=== PATIENT | male | born 1945 | race Caucasian/White ===

== ENCOUNTER 2024-02-15 16:22 | Emergency (ER) | payer OTHER, MEDICARE ==
[~2024-02-15] VITALS: Ht 182.9 cm; Wt 90.7 kg
[2024-02-15] MEDS: diphenhydrAMINE 50 mg/ml inj IM ONE (18:04)
[2024-02-15] MEDS: clonazePAM 1mg tablet PO ONE (18:05)
[2024-02-15] MEDS: LORazepam 2 mg/ml vial IM ONE (18:05)
[2024-02-15 18:11] LABS: BASOPHILS # (AUTO) 0.1 X10'3 (0-0.2); BASOPHILS % (AUTO) 0.4 % (0-1); EOSINOPHILS % (AUTO) 0.2 % (0-6); HEMATOCRIT 47.7 % (42.0-52.0); LYMPHOCYTES # (AUTO) 3.5 X10'3 (1.1-4.8); LYMPHOCYTES % (AUTO) 24.5 % (21-51); MEAN CORPUSCULAR HEMOGLOBIN 29.7 PG (27.0-31.0); MEAN CORPUSCULAR HGB CONC 33.5 g/dL (33.0-36.5); MEAN CORPUSCULAR VOLUME 88.8 FL (78-98); MEAN PLATELET VOLUME 8.2 FL (7.4-10.4); NEUTROPHILS # (AUTO) 9.6 X10'3 (1.8-7.7); NEUTROPHILS % (AUTO) 67.9 % (42-75); PLATELET COUNT 360 X10'3 (140-440); RED BLOOD COUNT 5.37 X10'6 (4.70-6.10); WHITE BLOOD COUNT 14.1 X10'3 (4.5-11.0)
[2024-02-15 18:39] LABS: ALBUMIN 4.3 G/DL (3.4-5.0); ANION GAP 9 (8-16); BLOOD UREA NITROGEN 31 MG/DL (7-18); BUN/CREATININE RATIO 21.5 (10.0-20.0); CALCIUM 9.4 MG/DL (8.5-10.1); CHLORIDE 101 MMOL/L (99-107); CREATININE 1.44 MG/DL (0.60-1.10); ETHANOL < 10 MG/DL (<10); GLUCOSE 121 MG/DL (70-104); POTASSIUM 4.1 MMOL/L (3.5-5.1); SALICYLATE 2.2 MG/DL (4.0-20.0); SODIUM 137 MMOL/L (135-145); eCRCL 48 ML/MIN; eGFR 48 ML/MIN
[2024-02-15 18:41] LABS: ACETAMINOPHEN < 2.0 UG/ML (10-30)
[2024-02-15 21:07] LABS: BILIRUBIN,URINE NEGATIVE (Neg); CLARITY,URINE CLEAR (Clear); COLOR,URINE YELLOW (Yellow); GLUCOSE, URINE NEGATIVE (Neg); KETONES,URINE TRACE mg/dl (Neg); LEUKOCYTE ESTERASE ,URINE NEGATIVE (Neg); NITRITES, URINE NEGATIVE (Neg); OCCULT BLOOD,URINE NEGATIVE (Neg); PH,URINE 5.5 (4.8-8.0); PROTEIN,URINE TRACE mg/dl (Neg); UROBILINOGEN,URINE 0.2 E.U/dL (0.2-1.0)
[2024-02-15 21:12] LABS: BACTERIA,URINE 1+ /HPF (Neg); SQUAMOUS EPITHELIAL CELL,UR FEW /LPF (FEW); UA COLLECTION TYPE VOIDED
[2024-02-15 21:13] LABS: HYALINE CASTS 0-3 /LPF (NEGATIVE); RBC,URINE NONE SEEN /HPF (0-2); WBC,URINE 0-4 /HPF (0-4)
[2024-02-15 21:31] LABS: URINE AMPHETAMINE SCREEN NEGATIVE (Neg); URINE BARBITUATE SCREEN NEGATIVE (Neg); URINE BENZODIAZEPINES SCREEN NEGATIVE (Neg); URINE CANNABINOID SCREEN POSITIVE (Neg); URINE COCAINE SCREEN NEGATIVE (Neg); URINE METHADONE SCREEN NEGATIVE (Neg); URINE OPIATE SCREEN NEGATIVE (Neg); URINE PHENCYCLIDINE SCREEN NEGATIVE (Neg)
[2024-02-15] MEDS ORDERED: NO HOME MEDS (21:54)
[2024-02-15] MEDS ORDERED: VENL150C5 PO (22:10)
[2024-02-16] MEDS: venlafaxine XR 75mg capsule (Q24H) PO SCH (07:31)
[2024-02-16] MEDS: amLODIPine 5mg tablet PO SCH (20:00)
[2024-02-17] MEDS: LORazepam 2 mg/ml vial ONE (06:45)
[2024-02-17] MEDS: diphenhydrAMINE 50 mg/ml inj ONE (06:45)
[2024-02-17] MEDS: haloperidol lactate 5mg/ml inj ONE (06:45)
[2024-02-17] MEDS: LORazepam 2 mg/ml vial IM ONE (06:46)
[2024-02-17] MEDS: diphenhydrAMINE 50 mg/ml inj IM ONE (06:47)
[2024-02-17] MEDS: haloperidol lactate 5mg/ml inj IM ONE (06:47)
[2024-02-17 13:57] VITALS: BP 116/72; PULSE 106; RESP 16; TEMP 98.1; O2SAT 98
== END 2024-02-17 14:23 | disposition still patient (30) ==
LOC: ER 16:23
DX: F22 Delusional disorders (principal); R40.4 Transient alteration of awareness; Z20.822 Contact with and (suspected) exposure to COVID-19
CPT/HCPCS: 36415; 70450; 73502; 80048; 80305; 80320; 80329; 81001; 85025; 87502; 87503; 87811; 96372; 99285; J1200; J1630; J2060

== ENCOUNTER 2024-07-20 10:39 | Inpatient (IN) | payer MEDICARE, OTHER ==
[~2024-07-20] VITALS: Ht 182.9 cm; Wt 88.6 kg
[~2024-07-20 10:39] MED LIST: VENL150C5 PO
--- NOTE | 2024-07-20 10:51 | ELECTROCARDIOGRAPH REPORT ---
[facility] Test Date: 2024-07-20 Test Time: 10:49:54 Pat Name: ELDER ROSS Department: EMERGENCY ROOM Room: Gender: M Chip Tuner: JOSE : 1945 Requested By: SALINA KRISHNAN Order Number: [id number] Reading MD: Dr. Winston Harris Measurements Intervals [place] Rate: 127 P: 0 OK: 101 QRS: -76 QRSD: 82 T: 88 QT: 300 QTc: 437 Interpretive Statements Sinus tachycardia Inferior infarct, old Abnormal lateral Q waves Probable anteroseptal infarct, recent Electronically Signed On 07-20-2024 15:47:[address] Winston Harris Please click the below link to view image of tracing.
[2024-07-20 11:08] LABS: BASOPHILS # (AUTO) 0.1 X10'3 (0-0.2); BASOPHILS % (AUTO) 0.6 % (0-1); EOSINOPHILS # (AUTO) 0.1 X10'3 (0-0.9); EOSINOPHILS % (AUTO) 0.8 % (0-6); HEMOGLOBIN 14.6 g/dl (14.0-17.9); LYMPHOCYTES # (AUTO) 2.9 X10'3 (1.1-4.8); LYMPHOCYTES % (AUTO) 29.9 % (21-51); MEAN CORPUSCULAR HEMOGLOBIN 29.3 PG (27.0-31.0); MEAN CORPUSCULAR HGB CONC 33.2 g/dL (33.0-36.5); MEAN CORPUSCULAR VOLUME 88.2 FL (78-98); MEAN PLATELET VOLUME 8.1 FL (7.4-10.4); MONOCYTES # (AUTO) 0.5 X10'3 (0-0.9); MONOCYTES % (AUTO) 4.7 % (2-12); NEUTROPHILS # (AUTO) 6.3 X10'3 (1.8-7.7); PLATELET COUNT 332 X10'3 (140-440); RED BLOOD COUNT 4.99 X10'6 (4.70-6.10); RED CELL DISTRIBUTION WIDTH 14.5 % (11.5-14.5); WHITE BLOOD COUNT 9.8 X10'3 (4.5-11.0)
--- NOTE | 2024-07-20 11:14 | RADIOLOGY REPORT ---
EXAM: DI CHEST,SINGLE VIEW REASON FOR EXAM: CP TECHNIQUE: 1 view of the chest COMPARISON: None FINDINGS/IMPRESSION: LUNGS: No pleural effusion, consolidation, or pneumothorax MEDIASTINUM: Unremarkable BONES: No acute osseous abnormality OTHER: None
[2024-07-20 11:24] LABS: ALANINE AMINOTRANSFERASE 19 U/L (12-78); ALBUMIN 3.9 G/DL (3.4-5.0); ALBUMIN/GLOBULIN RATIO 1.1 (1.1-1.5); ALKALINE PHOSPHATASE 84 IU/L (46-116); ANION GAP 18 (8-16); ASPARTATE AMINO TRANSFERASE 18 U/L (10-37); BILIRUBIN,TOTAL 0.7 MG/DL (0.1-1.0); BLOOD UREA NITROGEN 16 MG/DL (7-18); BUN/CREATININE RATIO 10.2 (10.0-20.0); CALCIUM 9.1 MG/DL (8.5-10.1); CHLORIDE 103 MMOL/L (99-107); CREATININE 1.57 MG/DL (0.60-1.10); GLUCOSE 162 MG/DL (70-104); POTASSIUM 3.9 MMOL/L (3.5-5.1); SODIUM 139 MMOL/L (135-145); TOTAL CARBON DIOXIDE 18.5 MMOL/L (24-32); TOTAL PROTEIN 7.5 G/DL (6.4-8.2); eCRCL 43 ML/MIN; eGFR 43 ML/MIN
[2024-07-20 11:31] LABS: PRO BRAIN NATRIURETIC PEPTIDE 3861 PG/ML (0-450)
[2024-07-20] MEDS ORDERED: CLOP75TA34 PO (11:55)
[2024-07-20] MEDS ORDERED: LISI20TA28 PO (11:55)
[2024-07-20] MEDS ORDERED: SPIR25TA5 PO (11:55)
[2024-07-20] MEDS ORDERED: ASPI81TA52 PO (11:55)
[2024-07-20] MEDS ORDERED: AMLO-139 PO (11:55)
[2024-07-20] MEDS ORDERED: ATOR-429 PO (11:55)
--- NOTE | 2024-07-20 13:09 | Physician Documentation ---
History of Present Illness ~ General Chief Complaint: Chest Pain Stated Complaint: 5150 Time Seen by MD: 11:57 OK to notify your PCP?: Yes Primary Medical Doctor: ERICKA; MOTORCYCLE MAKER: AMINATA WHITTAKER Source: patient Mode of Arrival: POV Exam Limitations: no limitations History of Present Illness Initial Comments This is a 79-year-old male who was brought in by the extractor operator's department on a 5150 hold. Evidently the patient was found gravely disabled and was not wearing clothing. When I spoke with the patient he states it does not work clearly because he was multiple sclerosis and it causes irritation he was lower extremities. The patient was states he was started having some chest pain in his linen tech arrived to his house and it was have a cardiac history with stents however he states the chest pain has since resolved. He denies any point having shortness of breath. Medication Reconciliation Allergies: Coded Allergies: No Known Allergies (Unverified , 02/15/24) Scheduled Amlodipine Besylate/Benazepril 10/40 MG* (Amlodipine-Benazepril 10/40 MG*), 1 CAP PO DAILY, (Reported) Aspirin (Aspirin EC), 1 TAB PO DAILY, (Reported) Atorvastatin Calcium* (Lipitor*), 1 TABLET PO HS, (Reported) Clopidogrel Bisulfate (Clopidogrel), 1 TAB PO DAILY, (Reported) Lisinopril (Lisinopril), 10 MG PO DAILY, (Reported) Spironolactone (Spironolactone), 25 MG PO DAILY, (Reported) Venlafaxine HCl (Effexor Xr), 1 CAP PO DAILY, (Reported) Physical Exam Physical Exam Vital Signs: Temperature: 97.7, Source: Oral, Heart Rate: 139, Respiratory Rate: 18, BP: 210/125, Pulse Oximetry: 100, Weight: 88.640 Oxygen Flow Rate: 0 Pulse Oximetry Reflects: adequate oxygenation General Appearance: alert, WD/WN, no apparent distress Head: normal inspection Pupils/EOM/Fundus: PERRLA Neck: non-tender, full range of motion, supple Respiratory No accessory muscle use or retractions. Lungs are clear to auscultation all granados. Cardiovascular No rubs, gallops or murmurs. No peripheral edema, cyanosis or clubbing of the extremities. Neurologic: oriented x4, character impersonator II-XII nml as tested, memory intact, oriented to time, oriented to person, oriented to place, oriented to events Motor / Sensory: no motor deficit Psychiatric: agitation Psychiatric The patient denies psychiatric issues. He states that he was brought here against his will. Skin: normal color, warm/dry Progress Progress Note Yamini: evaluated patient after repeat EKG, Broad t wave inversions in anterior leads concerning for Wellens waves. He is currently chest pain free. Cardiology Dr. Dickson consulted. He will evaluate the patient at bedside. Results/Orders Reviewed/noted all lab results: Yes Results/Orders Orders - SALINA KRISHNAN MD Chest,Single View (07/20/24 10:48) Monitor (07/20/24 10:48) Saline Lock (07/20/24 10:48) Oxygen (07/20/24 10:48) Electrocardiogram (07/20/24 10:48) Completed Orders - SALINA KRISHNAN MD Chest,Single View (07/20/24 10:48) Cbc/Diff (07/20/24 10:48) PBNP (07/20/24 10:48) Electrocardiogram (07/20/24 10:48) CMP (07/20/24 10:48) Hs Troponin I W Calculations (07/20/24 10:48) Hs Troponin I W Calculations (07/20/24 12:48) Hs Troponin I W Calculations (07/20/24 13:48) Drug Screen, Urine (07/20/24 11:26) Hgb A1c (07/20/24 10:55) Lipid Panel (07/20/24 10:55) Medications Received in ER Medications (Trade) Dose Ordered Sig/Delphine Route PRN Reason Start Time Stop Time Status Last Admin Dose Admin (Lopressor tablet) 50 mg ONCE ONCE PO 07/20/24 13:25 07/20/24 13:26 DC 07/20/24 13:40 50 MG (Ecotrin 325MG tablet) 1 tab ONCE ONCE PO 07/20/24 13:50 07/20/24 13:51 DC 07/20/24 14:47 1 TAB (heparin 10,000 unit/ml 1ml inj) 4,000 units ONCE ONCE IV 07/20/24 15:45 07/20/24 15:46 DC 07/20/24 16:27 4,000 UNITS Heparin Sodium/ Dextrose 250 ml @ 10 mls/hr Q25H PRN IV TO MAINTAIN PTT WITHIN RANGE 07/20/24 15:45 07/20/24 16:26 10 MLS/HR Vital Signs 07/20/24 07/20/24 07/20/24 07/20/24 10:49 11:02 13:20 13:40 Temp 97.7 97.7 Pulse 139 105 102 Resp 20 18 15 B/P (MAP) 210/125 176/103 (127) Pulse Ox 100 100 O2 Flow Rate 0 0 Laboratory Tests Test 07/20/24 10:55 07/20/24 12:42 07/20/24 13:24 07/20/24 13:47 White Blood Count 9.8 Red Blood Count 4.99 Hemoglobin 14.6 Hematocrit 44.0 Mean Corpuscular Volume 88.2 Mean Corpuscular Hemoglobin 29.3 Mean Corpuscular Hemoglobin Concent 33.2 Red Cell Distribution Width 14.5 Platelet Count 332 Mean Platelet Volume 8.1 Neutrophils (%) (Auto) 64.0 Lymphocytes (%) (Auto) 29.9 Monocytes (%) (Auto) 4.7 Eosinophils (%) (Auto) 0.8 Basophils (%) (Auto) 0.6 Neutrophils # (Auto) 6.3 Lymphocytes # (Auto) 2.9 Monocytes # (Auto) 0.5 Eosinophils # (Auto) 0.1 Basophils # (Auto) 0.1 CBC Comment Sodium Level 139 Potassium Level 3.9 Chloride Level 103 Carbon Dioxide Level 18.5 L Anion Gap 18 H Blood Urea Nitrogen 16 Creatinine 1.57 H Estimated GFR/1.73 m2 43 BUN/Creatinine Ratio 10.2 Glucose Level 162 H Hemoglobin A1c 5.1 Calcium Level 9.1 Total Bilirubin 0.7 Aspartate Amino Transf (AST/SGOT) 18 Alanine Aminotransferase (ALT/SGPT) 19 Alkaline Phosphatase 84 Troponin I High Sensitivity 73 79 *H 85 *H Pro-B-Type Natriuretic Peptide 3861 H Total Protein 7.5 Albumin 3.9 Globulin 3.6 Albumin/Globulin Ratio 1.1 Triglycerides Level 173 H Cholesterol Level 228 H LDL Cholesterol 155 H HDL Cholesterol 41 Cholesterol/HDL Ratio 5.6 H Chemistry Comments Troponin I High Sens Percent Delta 8 7 Troponin I Hi Sens Absolute Change 6 6 Urine Specimen Description Cln catch midstream Urine Color Yellow Urine Clarity Clear Urine pH 6.0 Urine Specific [place] 1.025 Urine Protein Trace Urine Glucose (UA) Negative Urine Ketones Negative Urine Occult Blood Negative Urine Nitrite Negative Urine Bilirubin Negative Urine Urobilinogen 0.2 Urine Leukocyte Esterase Negative Urine RBC 0-2 Urine WBC 0-4 Urine Squamous Epithelial Cells None seen Urine Bacteria None seen Urine Fine Granular Casts 0-3 Urine Mucus None seen Volume Urine Centrifuged 10 ml Urine Comment Urine Opiates Screen Negative Urine Methadone Screen Negative Urine Fentanyl Screen Negative Urine Barbiturates Screen Negative Urine Phencyclidine Screen Negative Urine Amphetamines Screen Negative Urine Benzodiazepines Screen Negative Urine Cocaine Screen Negative Urine Cannabinoids Screen Positive Drug Screen Comment EKG/XRAY/CT/US/VASC/MRI EKG : Intepreting Monitor?: No Additional Comment Twelve lead EKG as interpreted by me: Sinus rhythm rate of 127. Inferior infarct, old. Abnormal lateral Q-waves. Probable anterior septal infarct recent. Chest X-Ray : Interpreted By: self Views: 1 VIEW Additional Comments One view chest x-rays interpreted by me: No acute disease process. Cardiac silhouette and lung granados are appropriate. No obvious bony abnormality. Soft tissues unremarkable. Heart Score: Heart Score Response (Comments) Value History Slightly Suspicious [address]-Deviation 2 Age >65 2 Risk Factors >3 or Hx ASHD 2 Troponin Normal limit 0 Total 6 Medical Decision Making Findings The patient had a brief episode of chest pain with the extractor operator's arrived to his house however that has since resolved. The patient was tachycardic and slightly hypertensive so I gave him metoprolol 50 mg p.o.. The 2nd troponin came back elevated from his 1st at 79 from 72 so I gave the patient 325 mg p.o. of aspirin and one nitro sublingual which did resolve his mild discomfort though when I re- evaluated him in his states this pain was 2/10. The 3rd troponin came back elevated 85 so I ordered a heparin drip and will admit the patient to Medicine. Differential Diagnosis Gravely disabled. 5150 hold. Chest pain. Departure Disposition: ADMITTED INPATIENT Admitted to Inpatient Unit: yes, to hospitalist Admission Level of Care: Med/Surg with Tele Impression: Primary Impression: NSTEMI (non-ST elevated myocardial infarction) Condition: Guarded Referrals: NO PRIMARY CARE PROVIDER (PCP) Critical Care Note Total Time (mins): 45 Critical Care Note With the patient was found to have a NSTEMI which required heparin drip, cardiology consult and admission to the possibility of rapid deterioration of the patient. Signature Scribe Signature: No scribe Attestation: The note accurately reflects work and decisions made by me.Jose STEIN 07/20/24 13:41 JOSE SALEH July 20, 2024 13:09 SALINA KRISHNAN MD July 20, 2024 17:47
[2024-07-20] MEDS: metoprolol tartrate 50mg tablet PO ONE (13:40)
[2024-07-20] MEDS ORDERED: nitroGLYCERIN 0.4mg SUBLingual tab SL PRN (13:50)
[2024-07-20 14:22] LABS: URINE AMPHETAMINE SCREEN NEGATIVE (Neg); URINE BARBITUATE SCREEN NEGATIVE (Neg); URINE BENZODIAZEPINES SCREEN NEGATIVE (Neg); URINE CANNABINOID SCREEN POSITIVE (Neg); URINE COCAINE SCREEN NEGATIVE (Neg); URINE METHADONE SCREEN NEGATIVE (Neg); URINE OPIATE SCREEN NEGATIVE (Neg); URINE PHENCYCLIDINE SCREEN NEGATIVE (Neg)
[2024-07-20] MEDS: aspirin 325mg tablet, delayed-release (Ecotrin) PO ONE (14:47)
[2024-07-20] MEDS ORDERED: heparin 10,000 units/1 ML INJ IV PRN (15:45)
[2024-07-20] MEDS ORDERED: magnesium Cl slow-release 64mg tablet PO PRN (16:15)
[2024-07-20] MEDS ORDERED: magnesium sulf-water 2g/50mL 50 ML IV PRN (16:15)
[2024-07-20] MEDS ORDERED: potassium Cl 40MEQ/1/2NS 520ml 520 ML IV PRN (16:15)
[2024-07-20] MEDS ORDERED: mag hydrox/Alum hydrox/simeth 30ml oral suspension PO PRN (16:15)
[2024-07-20] MEDS ORDERED: magnesium hydroxide 30ml (MOM) UD suspension PO PRN (16:15)
[2024-07-20] MEDS ORDERED: acetaminophen 325mg tablet PO PRN (16:15)
[2024-07-20] MEDS ORDERED: potassium Cl 20 mEq SR tablet PO PRN ×2 (16:15)
[2024-07-20] MEDS ORDERED: magnesium sulf-water 4G/100mL 100 ML IV PRN (16:15)
[2024-07-20] MEDS: atorvastatin 20mg tablet PO SCH (16:20)
[2024-07-20] MEDS ORDERED: PERFLUTREN PROTEIN-A MICROSPHR (Optison) 0.22 MG/ML 3ML VIAL IV ONE (16:20)
[2024-07-20] MEDS: heparin 25,000 UNIT/250ml bag 250 ML IV PRN (16:26)
[2024-07-20] MEDS: heparin 10,000 units/1 ML INJ IV ONE (16:27)
[2024-07-20] MEDS: HEPARIN DRIP-CARDIAC**PHARMACIST-TO-DOSE IV ONE (16:28)
[2024-07-20] MEDS: MESSAGE TO NURSING IV ONE (16:28)
[2024-07-20 16:37] LABS: BILIRUBIN,URINE NEGATIVE (Neg); CLARITY,URINE CLEAR (Clear); COLOR,URINE YELLOW (Yellow); GLUCOSE, URINE NEGATIVE (Neg); KETONES,URINE NEGATIVE (Neg); LEUKOCYTE ESTERASE ,URINE NEGATIVE (Neg); NITRITES, URINE NEGATIVE (Neg); OCCULT BLOOD,URINE NEGATIVE (Neg); PROTEIN,URINE TRACE mg/dl (Neg); UROBILINOGEN,URINE 0.2 E.U/dL (0.2-1.0)
[2024-07-20 16:38] LABS: UA COLLECTION TYPE CLN CATCH MIDSTREAM
[2024-07-20] MEDS ORDERED: hydrALAZINE 20mg/ml inj. IV PRN (16:40)
[2024-07-20 16:43] LABS: WBC,URINE 0-4 /HPF (0-4)
[2024-07-20 16:44] LABS: BACTERIA,URINE NONE SEEN /HPF (Neg); FINE GRANULAR CAST 0-3 /LPF (NEGATIVE); MUCUS STRANDS NONE SEEN /LPF (Neg); RBC,URINE 0-2 /HPF (0-2); SQUAMOUS EPITHELIAL CELL,UR NONE SEEN /LPF (FEW)
[2024-07-20 16:47] LABS: HEMOGLOBIN A1C 5.1 % (4.5-6.2)
[2024-07-20 17:00] LABS: CHOL/HDL RATIO 5.6 (0.00-4.99); CHOLESTEROL 228 MG/DL (0-200); HDL CHOLESTEROL 41 MG/DL (35-60); LDL CHOLESTEROL 155 MG/DL (50-100); TRIGLYCERIDES 173 MG/DL (20-135)
--- NOTE | 2024-07-20 17:34 | ELECTROCARDIOGRAPH REPORT ---
[facility] Test Date: 2024-07-20 Test Time: 17:33:00 Pat Name: ELDER ROSS Department: [facility] Patient ID: [facility]-[id number] Room: [place] [address] Gender: M Lna: : 1945 Requested By: SALINA KRISHNAN Order Number: [id number] Reading MD: Dr. Winston Harris Measurements Intervals [place] Rate: 77 P: -8 CA: 156 QRS: -73 QRSD: 94 T: 101 QT: 404 QTc: 458 Interpretive Statements Sinus rhythm Left anterior fascicular block Anterolateral infarct, age indeterminate Abnormal T, consider ischemia, lateral leads ST elevation, consider inferior injury Electronically Signed On 07-21-2024 17:20:[address] Winston Harris Please click the below link to view image of tracing.
[2024-07-20 18:10] VITALS: BP 169/97; PULSE 78; RESP 11; TEMP 98; O2SAT 98
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
[2024-07-20 18:19] LABS: INR 1.2 INR; PROTHROMBIN TIME 12.1 SECONDS (9.0-12.0)
[2024-07-20] MEDS: lisinopril 10 MG tablet PO ONE (18:25)
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
[2024-07-20 18:34] LABS: APTT 122 SECONDS (22-32)
[2024-07-20] MEDS: furosemide 40mg/4ml inj IV ONE (19:37)
[2024-07-20] MEDS: clopidogrel 75mg tablet PO SCH (19:37)
[2024-07-20] MEDS: K and/or MAG REPLACEMENT MC SCH (19:38)
[2024-07-20] MEDS: venlafaxine XR 75mg capsule (Q24H) PO SCH (19:38)
[2024-07-20] MEDS: docusate sod 100mg capsule PO SCH (19:38)
[2024-07-20] MEDS: carVEDilol 3.125mg tablet PO SCH (19:39)
[2024-07-20 20:00] VITALS: RESP 12; O2SAT 100
[2024-07-20 22:00] VITALS: BP 138/86; PULSE 79; RESP 15; TEMP 98.2; O2SAT 99
[2024-07-21] VITALS (13 sets, daily range): BP systolic 62–174; BP diastolic 45–103; PULSE 78–99; RESP 13–22; TEMP 97.6–97.9; O2SAT 98–100
[2024-07-21 05:38] LABS: BASOPHILS % (AUTO) 0.6 % (0-1); EOSINOPHILS # (AUTO) 0.1 X10'3 (0-0.9); HEMATOCRIT 43.9 % (42.0-52.0); HEMOGLOBIN 14.8 g/dl (14.0-17.9); LYMPHOCYTES # (AUTO) 2.5 X10'3 (1.1-4.8); LYMPHOCYTES % (AUTO) 33.5 % (21-51); MEAN CORPUSCULAR HEMOGLOBIN 29.4 PG (27.0-31.0); MEAN CORPUSCULAR HGB CONC 33.8 g/dL (33.0-36.5); MEAN PLATELET VOLUME 8.2 FL (7.4-10.4); MONOCYTES # (AUTO) 0.6 X10'3 (0-0.9); MONOCYTES % (AUTO) 8.4 % (2-12); NEUTROPHILS # (AUTO) 4.2 X10'3 (1.8-7.7); NEUTROPHILS % (AUTO) 56.5 % (42-75); PLATELET COUNT 270 X10'3 (140-440); RED BLOOD COUNT 5.04 X10'6 (4.70-6.10); RED CELL DISTRIBUTION WIDTH 13.8 % (11.5-14.5); WHITE BLOOD COUNT 7.4 X10'3 (4.5-11.0)
[2024-07-21 05:48] LABS: MAGNESIUM 2.2 MG/DL (1.5-2.4); POTASSIUM 4.2 MMOL/L (3.5-5.1)
[2024-07-21] MEDS ORDERED: aminophylline 500mg/20ml vial IV PRN (06:20)
[2024-07-21] MEDS ORDERED: nitroGLYCERIN 0.4mg SUBLingual tab SL PRN (06:20)
[2024-07-21] MEDS ORDERED: metoprolol tartrate 1mg/ml inj IV PRN (06:20)
[2024-07-21] MEDS: fenofibrate 145mg tablet PO SCH (07:33)
[2024-07-21] MEDS: lisinopril 10 MG tablet PO SCH (07:33)
[2024-07-21] MEDS: spironolactone 25 MG tablet PO SCH (07:33)
[2024-07-21] MEDS: furosemide 40mg/4ml inj IV SCH (07:33)
[2024-07-21 07:34] LABS: ALANINE AMINOTRANSFERASE 12 U/L (12-78); ALBUMIN/GLOBULIN RATIO 1.1 (1.1-1.5); ALKALINE PHOSPHATASE 84 IU/L (46-116); ANION GAP 14 (8-16); ASPARTATE AMINO TRANSFERASE 23 U/L (10-37); BLOOD UREA NITROGEN 18 MG/DL (7-18); BUN/CREATININE RATIO 14.8 (10.0-20.0); CALCIUM 9.2 MG/DL (8.5-10.1); CHLORIDE 102 MMOL/L (99-107); CREATININE 1.22 MG/DL (0.60-1.10); GLUCOSE 107 MG/DL (70-104); SODIUM 140 MMOL/L (135-145); TOTAL CARBON DIOXIDE 24.1 MMOL/L (24-32); TOTAL PROTEIN 7.8 G/DL (6.4-8.2); eCRCL 56 ML/MIN; eGFR 58 ML/MIN
[2024-07-21] MEDS: aspirin 81mg, enteric-coated 1 TAB TABLET.DR PO SCH (07:43)
[2024-07-21] MEDS ORDERED: venlafaxine XR 75mg capsule (Q24H) PO SCH (08:00)
--- NOTE | 2024-07-21 09:43 | CARDIOLOGY REPORT ---
APPROVED REPORT EXAM: Comprehensive 2D, Doppler, and color-flow Echocardiogram. Patient Location: ED16 Blood Pressure: 165/99 mmHg Heart Rate: 82 bpm Rhythm: NSR Indications Chest Pain Hx stents Troponin 85 Pro BNP 3861 Inspector Final Assembly Conveyor Line is Jodie Gregg MD No previous echo at [facility] 2D Dimensions LA Diam4.1 cm IVSd 1.3 (0.7-1.1cm) LVDd 5.1 cm PWd 1.3 (0.7-1.1cm) IVSs 1.4 (0.8-1.2cm) LVDs 4.2 (2.5-4.0cm) Aortic Root(2D) 3.3 cm PWs 1.7 (0.8-1.2cm) LVOT Diameter 2.10 (1.8-2.4cm) LVEF(%) 37.4 (>50%) Ao Asc Diam.3.41 cmIVC 16.37 mm FS (%) 18.1 % SV 45.6 ml CO 3.8 L/min M-Mode Dimensions MV EPSS 0.7 (<0.5cm) Aortic Valve AoV Peak Wilberto. 135.8 cm/s AoV VTI 22.9 cm AO Peak GR. 7.4 mmHg AO Mean GR. 4 mmHg LVOT VTI 16.91 cm LVOT Peak Wilberto. 95.9 cm/s PAOLA(VTI)/BSA 2.56 cm2/m2 PAOLA (VTI) 2.56 cm2 Mitral Valve MV E Velocity 48.6 cm/s MV Peak Gr. 4 mmHg MV DECEL TIME 128 ms MV A Velocity 69.8 cm/s MV PHT 36 ms E/A Ratio 0.7 MVA (PHT) 6.11 cm2 MV VMax98.6 cm/s TDI Medial E' P. V 5.96 cm/s E/Medial E' 8.2 Tricuspid Valve RAP ESTIMATE 10 mmHg Pulmonary Vein S1 Velocity 52.9 cm/s D2 Velocity 27.5 cm/s PVa Vnimseud11.8 cm/s PVa [id number] msec LEFT VENTRICLE LV is normal in size with mild concentric hypertrophy. Overall systolic function appears to be modera te to severely reduced. Normal contractility in the base of the heart reducing to akinesia at the ape x. There is [id number] LV systolic dysfunction present. Overall estimated LV ejection fracti on is about 35-40%. RIGHT VENTRICLE RV is normal size and function. ATRIA Left atrium is mildly dilated. AORTIC VALVE Trileaflet AV appears sclerotic without stenosis. No insufficiency. MITRAL VALVE MV is thickened with mild annular thickening and no stenosis. Mild mitral regurgitation. TRICUSPID VALVE The tricuspid valve is normal in structure. Trace tricuspid regurgitation. PULMONIC VALVE The pulmonary valve is normal in structure. Trace pulmonic regurgitation. GREAT VESSELS The aortic root is normal in size. The ascending aorta is normal in size. The IVC is normal in size a nd collapses >50% with inspiration. PERICARDIUM Trace anterior pericardial effusion with no evidence of hemodynamic compromise. Other Information Study Quality: Fair Conclusion Overall estimated LV ejection fraction is about 35-40%. LV is normal in size with mild concentric hypertrophy. Overall systolic function appears to be modera te to severely reduced. Normal contractility in the base of the heart reducing to akinesia at the ape x. RV is normal size and function. Trileaflet AV appears sclerotic without stenosis. No insufficiency. Mild mitral regurgitation. Trace tricuspid regurgitation. Trace pulmonic regurgitation. Trace anterior pericardial effusion with no evidence of hemodynamic compromise. There is [id number] LV systolic dysfunction present.
[2024-07-21] MEDS: ondansetron/PF 4mg/2ml inj IV PRN (11:28)
[2024-07-21] MEDS: regadenoson 0.4mg/5ml syringe IV PRN (11:28)
--- NOTE | 2024-07-21 12:59 | PROGRESS NOTE ---
Progress Note Cardiology Providers to CC ~ Subjective Subjective Cardiology progress note: Patient asymptomatic. Objective Result Diagram: 07/21/2451007/21/24510 Objective Echocardiogram with old anterior wall MN. Nuclear scan with old anterior wall MN no reversible ischemia. Ejection fraction approximately 40%. Coagulation Studies Laboratory Tests Test 07/20/24 16:36 Prothrombin Time 12.1 SECONDS (9.0-12.0) H INR International Normalized Ratio 1.2 INR Activated Partial Thromboplast Time 122 SECONDS (22-32) *H Coagulation Comments Problem\Assessment\Plan Additional Plan Impression chronic ischemic cardiomyopathy. Recommendation continue medical therapy follow-up at [facility]. Discharge at your convenience. We will sign off. ELDER JULES MD July 21, 2024 12:59
--- NOTE | 2024-07-21 13:23 | RADIOLOGY REPORT ---
EXAM: NM NM RANJAN SCAN History: elevated troponins Comparison Study: None TECHNIQUE: Resting myocardial perfusion imaging was performed approximately 30 minutes following the injection of 8.8 mCi of Tc-99m sestamibi. Peak pharmacologic stress, the patient was injected with 35 .03 mCi of Tc-99m sestamibi. Gated post stress images were acquired in the supine and prone positions approximately 30 minutes after stress and left ventricular ejection fraction (LVEF) was calculated. Findings: The overall quality of the study is adequate. The left ventricular cavity is noted to be normal. There is no evidence of abnormal lung activity. Additionally, the right ventricle appears normal. Myocardial perfusion images demonstrate large sized, severe intensity perfusion defects in the mid to distal anterior, septal, inferior, and lateral btehea. Gated imaging reveals globally hypokinetic wall motion with a calculated decreased LVEF of 28 % with end-diastolic volume of 77 mL at stress. Impression: 1. Large sized, severe intensity fixed perfusion defects in the mid to distal anterior, septal, infer ior, and lateral bethea favored infarcts. 2. No evidence reversible ischemia. 3. Overall gated left ventricular systolic function was globally hypokinetic with calculated decrease d LVEF of 28 % at stress. 4. No left ventricular dilatation.
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
== END 2024-07-21 19:15 | disposition home or self-care (01) | DRG 280 ==
LOC: ER 10:39 → ED HOLD 16:17 → PCU 3S 17:56
PROVIDERS: ADMIT Internal Medicine; ATTEND Internal Medicine
PROC: 4A02XM4 Measurement of Cardiac Total Activity, External Approach (ICD-10-PCS; principal; 2024-07-21)
PROC: 3E033HZ Introduction of Radioactive Substance into Peripheral Vein, Percutaneous Approach (ICD-10-PCS; 2024-07-21)
DX: I21.4 Non-ST elevation (NSTEMI) myocardial infarction (principal); I50.23 Acute on chronic systolic (congestive) heart failure; G35 Multiple sclerosis; I25.10 Atherosclerotic heart disease of native coronary artery without angina pectoris; I11.0 Hypertensive heart disease with heart failure; E78.5 Hyperlipidemia, unspecified; I25.5 Ischemic cardiomyopathy; Z79.82 Long term (current) use of aspirin; Z79.899 Other long term (current) drug therapy; Z79.01 Long term (current) use of anticoagulants
CPT/HCPCS: 36415; 71045; 78452; 80053; 80061; 80305; 81001; 83036; 83735; 83880; 84484; 85025; 85610; 85730; 87081; 93005; 93017; 93306; 99291; A9500; G0378; J1644; J1940; J2405; J2785

== ENCOUNTER 2024-09-14 12:20 | Emergency (ER) | payer OTHER, MEDICARE ==
[~2024-09-14] VITALS: Ht 182.9 cm; Wt 92.0 kg
[~2024-09-14 12:20] MED LIST changes: +AMLO-139 PO; +ASPI81TA52 PO; +ATOR-429 PO; +CLOP75TA34 PO; +LISI20TA28 PO; +SPIR25TA5 PO
--- NOTE | 2024-09-14 12:29 | ELECTROCARDIOGRAPH REPORT ---
[facility] Test Date: 2024-09-14 Test Time: 12:24:38 Pat Name: ELDER ROSS Department: EMERGENCY ROOM Room: Gender: M Implant Coordinator: : 1945 Requested By: SUHAS HARRIS Order Number: [id number] Reading MD: Dr. Suhas Harris Measurements Intervals [place] Rate: 129 P: 59 ID: [id number] QRS: -73 QRSD: 82 T: 86 QT: 293 QTc: 430 Interpretive Statements Sinus tachycardia Inferior infarct, old Abnormal lateral Q waves Anterior infarct, old Electronically Signed On 09-14-2024 15:05:[address] Suhas Harris Please click the below link to view image of tracing.
[2024-09-14] MEDS: normal saline 1000ml 1,000 ML IV ONE (12:37)
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
[2024-09-14 12:38] LABS: MEAN PLATELET VOLUME 8.8 FL (7.4-10.4); RED CELL DISTRIBUTION WIDTH 13.9 % (11.5-14.5)
[2024-09-14 12:44] VITALS: TEMP 98
[2024-09-14] MEDS: venlafaxine XR 75mg capsule (Q24H) PO SCH (12:49)
[2024-09-14 12:53] LABS: APTT 26 SECONDS (22-32); INR 1.0 INR
--- NOTE | 2024-09-14 12:53 | RADIOLOGY REPORT ---
CHEST RADIOGRAPH Indication: CHEST PAIN Technique: Single frontal view of the chest was obtained Comparison: DI CHEST,SINGLE VIEW on DOS: 07/20/24 FINDINGS: Lines and Tubes: None Lungs: No focal consolidation. Pleura: No effusion. No pneumothorax. Cardiomediastinal contours: Unremarkable Bones: No acute osseous abnormality. IMPRESSION: No acute cardiopulmonary disease.
[2024-09-14 13:11] LABS: CREATININE 1.43 MG/DL (0.60-1.10); PRO BRAIN NATRIURETIC PEPTIDE 2633 PG/ML (0-450); TOTAL CARBON DIOXIDE 18.4 MMOL/L (24-32); eCRCL 47 ML/MIN; eGFR 48 ML/MIN
[2024-09-14] MEDS ORDERED: VENL150C5 PO (13:30)
[2024-09-14] MEDS ORDERED: LISI20TA28 PO (13:35)
[2024-09-14] MEDS: metoprolol tartrate 1mg/ml inj IV ONE (13:43)
[2024-09-14 13:55] VITALS: BP 181/95; PULSE 99; RESP 16; O2SAT 99
== END 2024-09-14 13:57 ==
LOC: ER 12:21
DX: R00.0 Tachycardia, unspecified (principal); I10 Essential (primary) hypertension; F15.23 Other stimulant dependence with withdrawal; R06.02 Shortness of breath; F41.9 Anxiety disorder, unspecified; I25.10 Atherosclerotic heart disease of native coronary artery without angina pectoris; I25.2 Old myocardial infarction; F12.90 Cannabis use, unspecified, uncomplicated; Z79.82 Long term (current) use of aspirin
CPT/HCPCS: 36415; 71045; 80048; 83735; 83880; 84484; 85025; 85610; 85730; 93005; 96361; 96374; 99285; J3490; J7030